=== PATIENT | female | born 1935 | race Caucasian/White ===

== ENCOUNTER → 2017-11-27 | Outpatient (CLI) | payer OTHER, MEDICARE | LOC: BHLMT 10:00 | PROVIDERS: ATTEND Internal Medicine Cardiovascular Disease | DX: I34.1 Nonrheumatic mitral (valve) prolapse (principal); I34.0 Nonrheumatic mitral (valve) insufficiency | CPT/HCPCS: 93306-PO ==

== ENCOUNTER → 2017-12-05 | Outpatient (CLI) | payer OTHER, MEDICARE | LOC: BHLMT 10:00 | PROVIDERS: ATTEND Internal Medicine Cardiovascular Disease | DX: I34.0 Nonrheumatic mitral (valve) insufficiency (principal); I34.1 Nonrheumatic mitral (valve) prolapse; R00.9 Unspecified abnormalities of heart beat; R03.0 Elevated blood-pressure reading, without diagnosis of hypertension; R94.31 Abnormal electrocardiogram [ECG] [EKG] | CPT/HCPCS: 93005-PO ==

== ENCOUNTER 2018-07-08 11:52 | Day surgery (SDC) | payer OTHER, MEDICARE ==
[2018-07-08] MEDS ORDERED: MIDAZOLAM 2 MG/2 ML VIAL IVP ONE (12:00)
[2018-07-08] MEDS ORDERED: NS 500 ML IV ONE (12:00)
[2018-07-08] MEDS ORDERED: ATROPINE SULFATE 1 MG/10 ML SYR IVP ONE (12:00)
[2018-07-08] MEDS ORDERED: BENZOCAINE UNIT DOSE SPRAY HURRICAINE MM ONE (12:00)
[2018-07-08] MEDS ORDERED: fentaNYL 100 MCG/2 ML INJ IVP ONE (12:00)
[2018-07-08 12:43] LABS: INR 1.26 (0.83-1.16); PROTIME(PATIENT) 15.3 SEC (12.0-15.0)
--- NOTE | 2018-07-08 13:45 | PDHPUP ---
History & Physical Update H&P update statement: This history and physical update is based on an assessment of the patient which was completed after admission or registration (within 24 hours), but prior to the surgery/procedure. H&P update: H&P reviewed & patient examined, no change in patient's condition since H&P completed
[2018-07-08] MEDS ORDERED: ATROPINE SULFATE 1 MG/10 ML SYR ONE (14:09)
--- NOTE | 2018-07-08 14:55 | PDANEPAE ---
ANE History of Present Illness her for SAKSHI/CV ANE Past Medical History - Cardiovascular History Hx Hypertension: Yes Hx Arrhythmias: Yes Hx Chest Pain: No Hx Coronary Artery / Peripheral Vascular Disease: No Hx CHF / Valvular Disease: No Hx Palpitations: Yes - Pulmonary History Hx COPD: No Hx Asthma/Reactive Airway Disease: No Hx Recent Upper Respiratory Infection: No Hx Oxygen in Use at Home: No Hx Sleep Apnea: No - Neurologic History Hx Cerebrovascular Accident: No Hx Seizures: No - Endocrine History Hx Diabetes: No ANE Review of Systems Review of systems is: negative Review of Systems: - Exercise capacity Exercise capacity: >=4 METS ANE Patient History - Allergies Allergies/Adverse Reactions: No Known Allergies Allergy (Unverified 07/08/18 12:00) - Home Medications Home medications: home medication list seen and reviewed - NPO status NPO Status: no food or drink >8 hours - Anes Hx Anes Hx: no prior problems - Smoking Hx Smoking Status: Former smoker ANE Labs/Vital Signs - Labs Result Diagrams: 07/08/18 12:15 - Vital Signs Vital Signs: reviewed preoperatively; see RN documention for details Height: 165.1 cm Weight: 62.596 kg ANE Physical Exam - Airway Neck exam: FROM Mallampati Score: Class 1 Mouth exam: normal dental/mouth exam - Pulmonary Pulmonary: no respiratory distress - Cardiovascular Cardiovascular: irregularly irregular ANE Anesthesia Plan Anesthesia Plan: GA with mask
[2018-07-08] MEDS ORDERED: PROPOFOL/EMULSION 500 MG/50 ML BOTTLE IV ONE (15:00)
--- NOTE | 2018-07-08 15:28 | POSTANESTH ---
Post Anesthetic Evaluation Cardiovascular Status: Normal, Stable Respiratory Status: Normal, Stable Level of Consciousness/Mental Status: Mildly Sleepy, Arousable Pain Control: Adequate, Prn Tx Ordered Nausea/Vomiting Control: Adequate, Prn Tx Ordered Complications Possibly Related to Anesthesia: None Noted
--- NOTE | 2018-07-08 16:09 | PDTEE1 ---
SAKSHI Cardioversion Procedure Indications: atrial fibrillation Consent: signed and in chart Anticoagulation: eliquis Procedural Details: Pads were placed in anterior-posterior position. SAKSHI probe was advanced and standard images obtained. There is no evidence of left atrial or left atrial appendage thrombus. Synchronized cardioversion attempt #1: 200J Conclusions: successful SAKSHI cardioversion
--- NOTE | 2018-07-08 16:09 | ECHO ---
[email or web address] [address] [address] Main: [phone] Echocardiography Examination Transesophageal Name: KARSTEN GTZ MR#: [id number] Study Date: 07/08/2018 Study Time: 03:03 PM Date of : 1935 Age: 83 year(s) Height: ( ) Weight: ( ) BSA: Gender: Female Examination: SAKSHI Contrast: I.V. dose of agitated saline Image Quality: Adequate Rhythm: Heart Rate: 90 bpm BP: / Indication: pre-cardioversion; r/o clot Procedure Staff Referring Physician: Ag Equipment Field Service Technician: Regina Greenwood [facility] Reading Physician: Néstor Montano MD Requesting Provider: Ordering Physician: Néstor Montano MD Indication: pre-cardioversion; r/o clot Acute complication: None Measurements Chambers TV/PV Label Value Normal Value Label Value Normal Value TR Pmax 30 mmHg TR Vmax 2.73 m/s Conclusions The patient was in atrial fibrillation at the time of the study. This procedure was performed immediately prior to the patient undergoing cardioversion. Normal left ventricular size and function. LVEF estimated at 60%. Normal wall motion. Severe biatrial enlargement. Intact interatrial septum on color flow, 2 dimensional Doppler imaging and agitated saline contrast study. Normal RV size and function. Trileaflet aortic valve without sclerosis, stenosis or insufficiency. 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 Grossly normal-appearing tricuspid valve. Moderate to severe tricuspid regurgitation. Trivial pericardial effusion. Following the procedure the patient underwent cardioversion with jew of sinus rhythm. Mitral Valve: There are four jets of severe mitral regurgitation. Patient: KARSTEN GTZ Study Date: 07/08/2018 Page 1 of 2 03:03 PM Findings Left Ventricle: Left ventricle is normal in size. Normal global systolic left ventricular function. The EF is visually estimated to be 60 %. Right Ventricle: Normal size right ventricle. Right ventricular systolic function is normal. Left Atrium: The left atrium is severely dilated. Left Atrium Appendage: No thrombus is identified. IAS: An agitated saline study was performed and was negative for intracardiac shunting. Right Atrium: The right atrium is severely dilated. Mitral Valve: There are four jets of severe mitral regurgitation. No mitral valve stenosis. The mitral leaflets are myxomatous in appearance. There is a marked mitral valve prolapse involving the anterior and posterior leaflets. Aortic Valve: The aortic valve is structurally normal and trileaflet. No significant aortic valve regurgitation. There is no aortic stenosis. Tricuspid Valve: Tricuspid valve leaflets are structurally normal. Moderate to severe tricuspid regurgitation. Pulmonic Valve: Pulmonic leaflets are structurally normal. Trivial pulmonic valve regurgitation is present. Aorta: Mild atheroma in the descending aorta. Pericardium: Trivial pericardial effusion. Exam Details Procedure Ordered: SAKSHI Procedure Status: Routine study Image Quality: Adequate Consent: Risks, alternatives of procedure explained to patient, informed consent obtained Probe Insertion: Attending acid operator Contrast: I.V. dose of agitated salineIntravenous contrast was administered to evaluate intracardiac shunting Facility Location: Cardiac Echo 1 (No Signature Object) Patient: KARSTEN GTZ Study Date: 07/08/2018 Page 2 of 2 03:03 PM [id number]
--- NOTE | 2018-07-11 11:49 | CPEKG ---
Test Reason : OPEN Blood Pressure : / mmHG Vent. Rate : 080 BPM Atrial Rate : 103 BPM P-R Int : 074 ms QRS Dur : 094 ms QT Int : 407 ms P-R-T Axes : 000 -28 076 degrees QTc Int : 470 ms Atrial fibrillation Borderline left axis deviation Borderline ST depression, diffuse leads Confirmed by Jomar Pena ([id number]) on 07/11/2018 11:48:46 AM Referred By: Néstor Montano Confirmed By:Jomar Pena
--- NOTE | 2018-07-11 11:50 | CPEKG ---
Test Reason : OPEN Blood Pressure : / mmHG Vent. Rate : 085 BPM Atrial Rate : 084 BPM P-R Int : 198 ms QRS Dur : 096 ms QT Int : 393 ms P-R-T Axes : 050 -22 060 degrees QTc Int : 468 ms Sinus rhythm Paired ventricular premature complexes Borderline left axis deviation Confirmed by Jomar Pena ([id number]) on 07/11/2018 11:50:03 AM Referred By: Néstor Montano Confirmed By:Jomar Pena
== END 2018-07-08 16:56 | disposition home or self-care (01) ==
LOC: FCATH 11:52
PROVIDERS: ATTEND Internal Medicine Cardiovascular Disease
DX: I48.0 Paroxysmal atrial fibrillation (principal); I34.1 Nonrheumatic mitral (valve) prolapse; I34.0 Nonrheumatic mitral (valve) insufficiency; I10 Essential (primary) hypertension; Z87.891 Personal history of nicotine dependence
CPT/HCPCS: J0461; J2704